=== PATIENT | male | born 1940 | race Caucasian/White ===

== ENCOUNTER 2017-11-03 19:12 | Emergency (ER) | payer OTHER ==
--- OUTSIDE RECORDS SUMMARY | 2017-11-03 19:14 | XMS REPORT | Clinical Summary ---
:1940 Author Organization [facility] Address [address] [place] [address] Care Team Providers Name Role Phone Husam Whittaker MD Primary Care Provider Allergies Active Allergy Reactions Severity Noted Date Comments Sulfa (Sulfonamide Antibiotics) 10/15/2015 Current Medications Prescription Sig. Disp. Refills Start End Date Status Date CYANOCOBALAMIN, VITAMIN Vitamin B-12 Active B-12, (VITAMIN B-12 2,500 mcg 1 ORAL) sublingual tablet multivitamin One-A-Day Active (THERAGRAN) tablet Essential 1 tablet omega-3 fatty omega-3 fatty Active acids-fish oil acids-fish oil 1 340-1,000 mg capsule 340 mg-1,000 mg capsule CINNAMON BARK-CHROMIUM 1 po QD Active PICOLIN ORAL aspirin (ECOTRIN) 81 MG Ecotrin Low Active enteric coated tablet Strength 81 mg 1 tablet,enteric coated valsartan-hydrochloroth TAKE 1 TABLET 90 tablet 2 Active iazide (DIOVAN-HCT) EVERY DAY 7 320-25 mg per tablet loratadine (CLARITIN) Take 10 mg by Active 10 mg tablet mouth daily. fluticasone (FLONASE) USE 2 SPRAYS 48 mL 1 Active 50 mcg/actuation nasal IN EACH 7 spray NOSTRIL DAILY ezetimibe (ZETIA) 10 mg TAKE 1 TABLET 90 tablet 2 Active tablet EVERY DAY 8 b complex vitamins Take 1 tablet Active tablet by mouth daily. magnesium 200 mg tablet Take by mouth. Active TURMERIC, BULK, MISC Active folic acid (FOLVITE) folic acid 400 10/29/19 Discontinued 400 MCG tablet mcg tablet 1 18 ZETIA 10 mg tablet TAKE 1 TABLET 90 tablet 2 11/30/19 Discontinued EVERY DAY 6 17 ezetimibe (ZETIA) 10 mg TAKE 1 TABLET 90 tablet 2 09/05/19 Discontinued tablet EVERY DAY 7 18 meclizine (ANTIVERT) 25 Take 1 tablet 30 tablet 1 04/24/20 mg tablet (25 mg total) 7 17 by mouth 3 (three) times a day as needed for dizziness for up to 30 days. amoxicillin-pot Take 1 tablet 20 tablet 0 04/09/20 clavulanate (AUGMENTIN) by mouth 2 7 17 875-125 mg per tablet (two) times a day for 10 days. fluticasone (FLONASE) 2 sprays (100 16 g 1 03/30/20 Discontinued 50 mcg/actuation nasal mcg total) by 7 17 spray Each Nare route daily for 30 days. methylPREDNISolone follow package 21 tablet 0 11/03/19 (MEDROL DOSEPAK) 4 mg directions 8 18 tablet Active Problems Problem Noted Date Essential hypertension 10/15/2015 HLD (hyperlipidemia) 10/15/2015 Spinal stenosis 10/15/2015 Weakness of distal arms and legs 10/15/2015 Sleep apnea 08/24/2012 Edema 05/03/2012 Aneurysm of thoracic aorta 11/03/2011 Malignant neoplasm of prostate 04/08/2011 Overview: Light Abdominal aortic aneurysm 04/04/2011 Atherosclerosis of coronary artery 04/03/2011 Resolved Problems Problem Noted Date Resolved Date Benign essential HTN 10/15/2015 12/04/2016 Encounters Date Type Specialty Care Team Description 10/28/2017 Office Visit Gerald Whittaker, Essential hypertension (Primary Dx ); Kayce Pulido, Pure hypercholesterolemia; Spinal stenosis of lumbar region with neurogenic claudication 09/05/2017 Refill Gerald Whittaker, Kayce Pulido MD 04/29/2017 Office Visit Gerald Whittaker, Routine general medical examination at a health care facility (Primary Dx); Kayce Pulido, Disease of prostate; Vertigo; Essential hypertension; Weakness of distal arms and legs; Malignant neoplasm of prostate; Sleep apnea, unspecified type; Abdominal aortic aneurysm without rupture; Pure hypercholesterolemia 04/29/2017 Telephone Internal [facility] 03/30/2017 Refill Internal Kayce Whittaker MD 03/30/2017 Orders Only Internal Kayce Whittaker MD 03/25/2017 Office Visit Gerald Whittaker, Vertigo (Primary Dx); Kayce Pulido, Abducens nerve palsy, 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 Procedure Pass Radiology 03/25/2017 Procedure Pass Radiology 03/25/2017 Procedure Pass Radiology 12/04/2016 Office Visit Gerald Whittaker, Abdominal aortic aneurysm (AAA) without rupture (Primary Dx); Kayce Pulido, Essential hypertension; Weakness of distal arms and legs; Malignant neoplasm of prostate; Pure hypercholesterolemia 11/29/2016 Refill Kayce Harrington MD after 11/02/2016 Immunizations Name Dates Previously Given Next Due FLUZONE HIGH-DOSE PF 03/25/2017, 04/28/2016, 04/25/2015, 04/25/2014 Influenza Split 05/03/2012 Influenza Trivalent 05/03/2008 Pneumococcal Conjugate 13-Valent 04/25/2015 Pneumococcal Polysaccharide 04/28/2016, 02/19/2009, 07/13/2008 Tdap 05/03/2013 Zoster 05/03/2011 Family History Medical History Relation Name Comments Dementia Father Hearing loss Father Heart attack Father Heart disease Mother Stroke Mother Relation Name Status Comments Father Mother Social History Tobacco Use Types Packs/Day Years Used Date Former Smoker Cigarettes 1 Smokeless Tobacco: Never Used Alcohol Use Drinks/Week oz/Week Comments No Sex Assigned at Date Recorded Not on file Last Filed Vital Signs Vital Sign Reading Time Taken Blood Pressure 136/86 10/28/2017 10:19 AM CDT Pulse 81 10/28/2017 10:19 AM CDT Temperature - - Respiratory Rate - - Oxygen Saturation - - Inhaled Oxygen Concentration - - Weight 98.4 kg (217 lb) 10/28/2017 10:11 AM CDT Height 180.3 cm (5' 11") 10/28/2017 10:11 AM CDT Body Mass Index 30.27 10/28/2017 10:11 AM CDT Plan of Treatment Date Type Specialty Care Team Description 04/30/2018 Office Visit Internal Medicine Husam Whittaker MD [address] [place], [place] [id number] Health Maintenance Due Date Last Done Comments INFLUENZA VACCINE 02/10/2018 03/25/2017, 04/28/2016, 04/28/2016, Additional history exists ZOSTER VACCINE Completed 05/03/2011 PNEUMOCOCCAL-13 Completed 04/25/2015, 07/13/2014 PNEUMOCOCCAL POLYSACCHARIDE VACCINE Completed 04/28/2016, 02/19/2009, AGE 65 AND OVER 07/13/2008 Results URINALYSIS, COMPLETE, WITH REFLEX TO CULTURE (04/29/2017 11:25 AM) Component Value Ref Range Color, UA YELLOW YELLOW Appearance CLEAR CLEAR Specific gravity, urine 1.010 1.001 - 1.035 pH, urine 7.0 5.0 - 8.0 Glucose, urine NEGATIVE NEGATIVE Bilirubin, UA NEGATIVE NEGATIVE Ketones, UA NEGATIVE NEGATIVE Occult blood, urine NEGATIVE NEGATIVE Protein, UA NEGATIVE NEGATIVE Nitrite, UA NEGATIVE NEGATIVE Leukocyte esterase, UA NEGATIVE NEGATIVE WBC, UA NONE SEEN < OR=5 /HPF RBC, UA NONE SEEN < OR=2 /HPF Squamous epithelial cells, UA NONE SEEN < OR=5 /HPF Bacteria, UA NONE SEEN NONE SEEN /HPF Hyaline casts, UA NONE SEEN NONE SEEN /LPF Reflex NO CULTURE INDICATED Specimen Performing Laboratory [facility] Narrative FASTING:YES DIFFICULT DRAW. PATIENT ADVISED TO RETURN FOR COLLECTION. PSA, POST-PROSTATECTOMY (04/29/2017 11:25 AM) Component Value Ref Range PSA, ICMA <0.02 ng/mL Comment: REFERENCE RANGES for PSA: LESS THAN 0.10 ng/mL AFTER RADICAL PROSTATECTOMY. 4.0 ng/mL OR LESS IN HEALTHY MALES WITHOUT PROSTATECTOMY. PSA values obtained with different assay methods or kits cannot be used interchangeably. This test was performed using the Nicole Cathy DxI method. PSA, ICMA is not to be used as a diagnostic procedure without confirmation of the diagnosis by another established product or procedure. The lower limit of accurate quantification for this assay is 0.02 ng/mL. PSA values less than 0.02 ng/mL cannot be accurately measured and will be reported as less than 0.02 ng/mL. Specimens with PSA levels below the lower limit of accurate quantification should be considered as negative. In patients with a negative result for post prostatectomy PSA, serial monitoring of PSA levels at regular intervals, along with physical examinations and other tests, may help to detect recurrent prostate cancer. Specimen Performing Laboratory [facility] Narrative FASTING:YES DIFFICULT DRAW. PATIENT ADVISED TO RETURN FOR COLLECTION. Thyroid stimulating hormone (04/29/2017 11:25 AM) Component Value Ref Range TSH 1.61 0.40 - 4.50 mIU/L Specimen Performing Laboratory [facility] Narrative FASTING:YES DIFFICULT DRAW. PATIENT ADVISED TO RETURN FOR COLLECTION. Hemoglobin A1c (04/29/2017 11:25 AM) Component Value Ref Range Hemoglobin A1C 5.5 <5.7 % of total Hgb Comment: For the purpose of screening for the presence of diabetes: <5.7% Consistent with the absence of diabetes 5.7-6.4%Consistent with increased risk for diabetes (prediabetes) > or=6.5%Consistent with diabetes This assay result is consistent with a decreased risk of diabetes. Currently, no consensus exists regarding use of hemoglobin A1c for diagnosis of diabetes in children. According to [place] Diabetes Association (ADA) guidelines, hemoglobin A1c <7.0% represents optimal control in non- diabetic patients. Different metrics may apply to specific patient populations. Standards of Medical Care in Diabetes(ADA). Specimen Performing Laboratory [facility] Narrative FASTING:YES DIFFICULT DRAW. PATIENT ADVISED TO RETURN FOR COLLECTION. Lipid panel (04/29/2017 11:25 AM) Component Value Ref Range Cholesterol, total 193 <200 mg/dL HDL cholesterol 59 >40 mg/dL Triglycerides 99 <150 mg/dL LDL cholesterol calculated 113 (H) mg/dL (calc) Comment: Reference range: <100 Desirable range <100 mg/dL for patients with CHD or diabetes and <70 mg/dL for diabetic patients with known heart disease. LDL-C is now calculated using the Chris-Andrew calculation, which is a validated novel method providing better accuracy than the Friedewald equation in the estimation of LDL-C. Chris SS et al. RANDY. 2013;310(19): 3902-2309 (http://education.Cardback/faq/KSN936) Cholesterol/HDL ratio 3.3 <5.0 (calc) Non-HDL cholesterol 134 (H) <130 mg/dL (calc) Comment: For patients with diabetes plus 1 major ASCVD risk factor, treating to a non-HDL-C goal of <100 mg/dL (LDL-C of <70 mg/dL) is considered a therapeutic option. Specimen Performing Laboratory [facility] Narrative FASTING:YES DIFFICULT DRAW. PATIENT ADVISED TO RETURN FOR COLLECTION. MRI Brain Wo Contrast (03/30/2017 11:15 AM) Specimen Performing Laboratory [facility] [address] [place] [address] Narrative EXAMINATION: MRI BRAIN WO CONTRAST CLINICAL HISTORY: R42 Dizziness and giddiness, H49.22 Sixth (abducent) nerve palsyleft eye, new onset L abducen's palsy COMPARISON:None TECHNIQUE: Multiplanar and multisequence MRI imaging of the brain was obtained without contrast. FINDINGS: There is no evidence of acute infarct, intracranial hemorrhage or mass, hydrocephalus or midline shift, stroke or thrombus in the vessels. There is nonspecific enlargement of the ventricles and extra axial space more prominent in the anterior region. There are mild nonspecific white matter changes. There is mucosal thickening and partial opacification of some of the sinuses. The orbits and mastoid air cells do not show abnormality. IMPRESSION: No radiographic findings to account for the patient's left 6th nerve palsy. If indicated high resolution images through the orbits with and without contrast can be performed for further evaluation. [id number] Procedure Note Interface, Radiology Results [facility] - 03/30/2017 2:40 PM CDT EXAMINATION: MRI BRAIN WO CONTRAST CLINICAL HISTORY: R42 Dizziness and giddiness, H49.22 Sixth (abducent) nerve palsy left eye, new onset L abducen's palsy COMPARISON: None TECHNIQUE: Multiplanar and multisequence MRI imaging of the brain was obtained without contrast. FINDINGS: There is no evidence of acute infarct, intracranial hemorrhage or mass, hydrocephalus or midline shift, stroke or thrombus in the vessels. There is nonspecific enlargement of the ventricles and extra axial space more prominent in the anterior region. There are mild nonspecific white matter changes. There is mucosal thickening and partial opacification of some of the sinuses. The orbits and mastoid air cells do not show abnormality. IMPRESSION: No radiographic findings to account for the patient's left 6th nerve palsy. If indicated high resolution images through the orbits with and without contrast can be performed for further evaluation. [id number] MRA Neck W Wo Contrast (03/30/2017 11:15 AM) Specimen Performing Laboratory [facility] [address] [place] [address] Narrative EXAMINATION: MRA NECK W WO CONTRAST CLINICAL HISTORY: R42 Dizziness and giddiness, H49.22 Sixth (abducent) nerve palsyleft eye, new onset L abducen's palsy COMPARISON:None TECHNIQUE: 2-D and 3-D [id number] MRA images of the cervical vessels were obtained with multiplanar and 3-D reconstructive algorithms. FINDINGS: The origins of the great vessels from the aortic arch are patent, and show no evidence of focal stenosis. The common carotid arteries show normal flow related signal, without evidence of focal stenosis. There is mild stenosis at the origin of the right internal carotid artery, estimated at 25%, according to NASCET criteria. There is flow related signal along the cervical course of both vertebral arteries, without evidence of high-grade stenosis. The vertebral arteries are similar in caliber. Each arises from its respective subclavian artery. IMPRESSION: Estimated 25% stenosis at the proximal right internal carotid artery, based on NASCET criteria. [id number] Procedure Note Interface, Radiology Results Incoming - 03/30/2017 1:15 PM CDT EXAMINATION: MRA NECK W WO CONTRAST CLINICAL HISTORY: R42 Dizziness and giddiness, H49.22 Sixth (abducent) nerve palsy left eye, new onset L abducen's palsy COMPARISON: None TECHNIQUE: 2-D and 3-D [id number] MRA images of the cervical vessels were obtained with multiplanar and 3-D reconstructive algorithms. FINDINGS: The origins of the great vessels from the aortic arch are patent, and show no evidence of focal stenosis. The common carotid arteries show normal flow related signal, without evidence of focal stenosis. There is mild stenosis at the origin of the right internal carotid artery, estimated at 25%, according to NASCET criteria. There is flow related signal along the cervical course of both vertebral arteries, without evidence of high-grade stenosis. The vertebral arteries are similar in caliber. Each arises from its respective subclavian artery. IMPRESSION: Estimated 25% stenosis at the proximal right internal carotid artery, based on NASCET criteria. [id number] MRA Head Wo Contrast (03/30/2017 11:15 AM) Specimen Performing Laboratory [facility] [address] [place] [address] Narrative EXAMINATION: MRA HEAD WO CONTRAST CLINICAL HISTORY: R42 Dizziness and giddiness, H49.22 Sixth (abducent) nerve palsyleft eye, new onset L abducen's palsy. Evaluate for intracranial artery abnormality. COMPARISON:None TECHNIQUE: [id number] MRA images of the [place] vessels were obtained with multiplanar and 3-D reconstructive algorithms. FINDINGS: There is flow in the anterior and both posterior communicating arteries. There is no significant focal stenosis in the major arteries forming the [place]. I do not see evidence of focal aneurysm or arterial venous malformation. IMPRESSION: Unremarkable MRA of the [place] with no significant abnormality. [id number] Procedure Note [facility], Radiology Results - 03/30/2017 1:29 PM CDT EXAMINATION: MRA HEAD WO CONTRAST CLINICAL HISTORY: R42 Dizziness and giddiness, H49.22 Sixth (abducent) nerve palsy left eye, new onset L abducen's palsy. Evaluate for intracranial artery abnormality. COMPARISON: None TECHNIQUE: [id number] MRA images of the [place] vessels were obtained with multiplanar and 3-D reconstructive algorithms. FINDINGS: There is flow in the anterior and both posterior communicating arteries. There is no significant focal stenosis in the major arteries forming the [place]. I do not see evidence of focal aneurysm or arterial venous malformation. IMPRESSION: Unremarkable MRA of the [place] with no significant abnormality. [id number] Sedimentation rate (03/25/2017 11:09 AM) Component Value Ref Range Sedimentation rate 2 < OR=20 mm/h Specimen Performing Laboratory [facility] Narrative FASTING:NO CBC with platelet and differential (03/25/2017 11:09 AM) Component Value Ref Range WBC 7.0 3.8 - 10.8 Thousand/uL RBC 4.58 4.20 - 5.80 Million/uL HGB 14.8 13.2 - 17.1 g/dL HCT 43.2 38.5 - 50.0 % MCV 94.3 80.0 - 100.0 fL MCH 32.3 27.0 - 33.0 pg MCHC 34.3 32.0 - 36.0 g/dL RDW 12.1 11.0 - 15.0 % Platelet count 221 140 - 400 Thousand/uL MPV 10.9 7.5 - 12.5 fL Neutrophils, absolute 4,627 1,500 - 7,800 cells/uL Lymphocytes, absolute 1,785 850 - 3,900 cells/uL Monocytes, absolute 420 200 - 950 cells/uL Eosinophils, absolute 126 15 - 500 cells/uL Basophils, absolute 42 0 - 200 cells/uL Neutrophils 66.1 % Lymphocytes 25.5 % Monocytes 6.0 % Eosinophils 1.8 % Basophils + RC 0.6 % Specimen Performing Laboratory [facility] Narrative FASTING:NO Comprehensive metabolic panel (03/25/2017 11:09 AM) Component Value Ref Range Glucose 90 65 - 99 mg/dL Comment: Fasting reference interval BUN, whole blood 15 7 - 25 mg/dL Creatinine 1.04 0.70 - 1.18 mg/dL Comment: For patients >49 years of age, the reference limit for Creatinine is approximately 13% higher for people identified as -[place] Citizen. EGFR Non-Afr. [place] Citizen 70 > OR=60 mL/min/1.73m2 EGFR 81 > OR=60 mL/min/1.73m2 BUN/creatinine ratio NOT APPLICABLE 6 - 22 (calc) Sodium 138 135 - 146 mmol/L Potassium 4.1 3.5 - 5.3 mmol/L Chloride 102 98 - 110 mmol/L CO2 30 20 - 31 mmol/L Calcium 9.5 8.6 - 10.3 mg/dL Protein 6.6 6.1 - 8.1 g/dL Albumin, S 4.0 3.6 - 5.1 g/dL Globulin, total 2.6 1.9 - 3.7 g/dL (calc) Albumin/globulin ratio 1.5 1.0 - 2.5 (calc) Total bilirubin 0.7 0.2 - 1.2 mg/dL Alkaline phosphatase 65 40 - 115 U/L AST 18 10 - 35 U/L ALT 16 9 - 46 U/L Specimen Performing Laboratory [facility] Narrative FASTING:NO after 11/02/2016 Insurance Payer Benefit Plan / Group Subscriber ID Type Phone Address MEDICARE MEDICARE PART A AND B xxxxxxxxxx Medicare [place], [place] COMMERCIAL MISC MISC COMMERCIAL xxxxxxxxx Commercial +[id number] [place] [id number]
[2017-11-03] MEDS ORDERED: NA CHLORIDE 0.9% 500 ML ONE (19:45)
[2017-11-03] MEDS ORDERED: ONDANSETRON 4 MG/2 ML VIAL ONE (19:45)
[2017-11-03 19:49] LABS: Absolute Lymphocytes (CBC) 1.5 K/uL (0.7-4.9); Absolute Monocytes 0.5 K/uL (0.1-1.3); Absolute Neutrophil 10.8 K/uL (1.8-8.0); Basophils % 0.1 % (0-1.3); Eosinophils % 0.9 % (0-4.4); Hematocrit 42.1 % (39.6-49.0); Lymphocytes % 11.4 % (15.3-44.8); MCH 32.6 pg (27.0-35.0); MCV 94.1 fL (80-100); MPV 8.8 fL (7.6-11.3); Monocytes % 4.1 % (3.3-12.3); RBC Red Blood Cell Count 4.47 M/uL (4.33-5.43)
[2017-11-03 20:04] LABS: Protime INR 0.93
--- NOTE | 2017-11-03 20:28 | RAD REPORT ---
EXAM DESCRIPTION: US - Abdomen Exam Limited - 11/03/2017 8:20 pm CLINICAL HISTORY: Abdominal pain. COMPARISON: None. FINDINGS: The gallbladder demonstrates cholelithiasis. No pericholecystic fluid or gallbladder wall thickening. The common bile duct is normal measuring 4 mm. The liver demonstrates no findings of intrahepatic biliary dilatation. Visualize aspects of the aorta are within normal limits. IMPRESSION: Cholelithiasis.
--- NOTE | 2017-11-03 20:32 | RAD REPORT ---
EXAM DESCRIPTION: RAD - Chest Single View - 11/03/2017 8:24 pm CLINICAL HISTORY: Chest pain. COMPARISON: None. FINDINGS: Portable technique limits examination quality. The lungs are mildly emphysematous but grossly clear. The heart is normal in size. No displaced fract ures. IMPRESSION: Mild COPD.
[2017-11-03 20:33] LABS: CKMB Creatine Kinase MB 3.4 ng/ml (0.3-4.0); Potassium 3.7 mEq/L (3.6-5.0)
[2017-11-03 20:40] LABS: Albumin 4.1 g/dL (3.2-5.5); Bilirubin Direct 0.1 mg/dL (0-0.2); Bilirubin Total 0.3 mg/dL (0.3-1.2); Magnesium 1.9 mg/dL (1.8-2.5); Protein, Total 7.1 g/dL (6.0-8.3)
[2017-11-03] MEDS ORDERED: PROMETHAZINE 25 MG/ML VIAL ONE (20:48)
[2017-11-03] MEDS ORDERED: CEFTRIAXONE/SWI 1gm 1 GM/10 ML SYR ONE (21:18)
[2017-11-03] MEDS ORDERED: MORPHINE 10 MG/ML VIAL ONE (21:18)
--- NOTE | 2017-11-03 21:26 | ER ---
Nurse's Notes [facility] Name: Elkin Mancilla Age: 77 yrs Sex: Male : 1940 Arrival Date: 11/03/2017 Time: 19:17 Bed 17 Private MD: Diagnosis: Chest pain. Cholelithiasis Presentation: 11/03 19:17 Presenting complaint: Patient states: Sternal chest pain that moves to RUQ. Patient aj reports pain began at 1500 today. Patient reports nausea as well. Transition of care: patient was not received from another setting of care. Onset of symptoms was November 03, 2017. Initial Sepsis Screen: Does the patient meet any 2 criteria? No. Patient's initial sepsis screen is negative. Does the patient have a suspected source of infection? No. Patient's initial sepsis screen is negative. Care prior to arrival: None. 19:17 Method Of Arrival: Wheelchair aj 19:17 Acuity: GIFTY 2 aj Triage Assessment: 19:19 General: Appears in no apparent distress. uncomfortable, Behavior is calm, cooperative, aj appropriate for age. Pain: Complains of pain in chest Pain currently is 6 out of 10 on a pain scale. Neuro: Level of Consciousness is awake, alert, obeys commands, Oriented to person, place, time, situation. Cardiovascular: Reports chest pain, nausea, Capillary refill < 3 seconds in bilateral fingers Patient's skin is warm and dry. Respiratory: Airway is patent Respiratory effort is even, unlabored, Respiratory pattern is regular, symmetrical. Derm: Skin is intact, is healthy with good turgor, Skin is pink, warm \T\ dry. normal. Historical: - Allergies: 19:19 Sulfa (Sulfonamide Antibiotics); aj - Home Meds: 19:19 Diovan HCT 160-12.5 mg Oral tab 1 tab once daily [Active]; Zetia 10 mg Oral tab 1 tab aj once daily [Active]; - PMHx: 19:19 Hyperlipidemia; Hypertension; AAA; aj - PSHx: 19:19 Prostatectomy; aj - Immunization history:: Adult Immunizations up to date. - Social history:: Smoking status: Patient/guardian denies using tobacco. Screenin:30 Abuse screen: Denies threats or abuse. Denies injuries from another. Nutritional ak1 screening: No deficits noted. Tuberculosis screening: No symptoms or risk factors identified. Fall Risk None identified. Assessment: 19:30 Reassessment: Patient appears in no apparent distress at this time. General: Appears in ak1 no apparent distress. Behavior is calm, cooperative. Pain: Complains of pain in chest Pain radiates to under right breast Pain began 4 hours ago. Neuro: No deficits noted. Cardiovascular: Reports chest pain, nausea. Respiratory: No deficits noted. GI: No signs and/or symptoms were reported involving the gastrointestinal system. : No signs and/or symptoms were reported regarding the genitourinary system. EENT: No signs and/or symptoms were reported regarding the EENT system. Derm: No signs and/or symptoms reported regarding the dermatologic system. 20:39 Reassessment: pt c/o increased nausea. ak1 Vital Signs: 19:19 BP 146 / 78; Pulse 59; Resp 19; Temp 97.8; Pulse Ox 98% on R/A; Weight 99.79 kg; Height aj 5 ft. 11 in. (180.34 cm); Pain 6/10; 21:34 BP 151 / 75; Pulse 56; Resp 18; Pulse Ox 95% on R/A; mt 19:19 Body Mass Index 30.68 (99.79 kg, 180.34 cm) aj ED Course: 19:17 Patient arrived in ED. aj 19:18 Triage completed. aj 19:19 Arm band placed on left wrist. Patient placed in an exam room. aj 19:24 Aleksandar Lund MD is Attending Physician. pkl 19:29 Arleen Pierosn, RN is Primary Nurse. ak1 19:30 Patient has correct armband on for positive identification. Placed in gown. Bed in low ak1 position. Call light in reach. Side rails up X 1. Adult w/ patient. die presser on. Pulse ox on. NIBP on. 19:30 Inserted saline lock: 20 gauge in right antecubital area, using aseptic technique. ak1 Blood collected. Patient maintains SpO2 saturation greater than 95% on room air. 20:20 Abdomen Exam Limited In Process Unspecified. EDMS 20:20 Ultrasound completed. Patient tolerated well. cy 20:25 XRAY Chest (1 view) In Process Unspecified. EDMS 21:33 No provider procedures requiring assistance completed. ak1 21:46 IV discontinued, intact, bleeding controlled, No redness/swelling at site. Pressure ak1 dressing applied. Administered Medications: Discontinued: NS 0.9% 1000 ml IV at 100 ml/hr once 19:49 Drug: NS 0.9% 1000 ml Route: IV; Rate: 100 ml/hr; Site: right antecubital; ak1 11/04 00:15 Follow up: IV Status: Order to discontinue infusion ak1 11/03 19:49 Drug: Zofran 4 mg Route: IVP; Site: right antecubital; ak1 21:45 Follow up: Response: No adverse reaction ak1 11/04 00:15 Follow up: Response: No adverse reaction ak1 11/03 20:53 Drug: Phenergan 12.5 mg Route: IVP; Site: right antecubital; ak1 21:45 Follow up: Response: No adverse reaction ak1 11/04 00:15 Follow up: Response: No adverse reaction ak1 11/03 21:26 Drug: Rocephin - (cefTRIAXone) 1 grams Route: IVPB; Infused Over: 30 mins; Site: right ak1 antecubital; 21:45 Follow up: IV Status: Completed infusion ak1 11/04 00:15 Follow up: IV Status: Completed infusion ak1 11/03 21:26 Drug: morphine 2 mg Route: IVP; Site: right antecubital; ak1 21:45 Follow up: Response: No adverse reaction ak1 11/04 00:16 Follow up: Response: No adverse reaction ak1 Outcome: 11/03 21:26 Discharge ordered by . melva 21:46 Discharged to home via wheelchair, with family. ak1 21:46 Condition: stable 21:46 Discharge instructions given to patient, family, Instructed on discharge instructions, follow up and referral plans. no drinking with medication, no driving heavy equipment, medication usage, Demonstrated understanding of instructions, follow-up care, medications, Prescriptions given X 3. 21:46 Patient left the ED. ak1 Signatures: Dispatcher [employer] Sara Gaitan RN RN aj Lam, Pin, MD MD pkl Krenek, Amber, RN RN ak1 Thompson, Moriah mt Yong, Chheannith cy
--- NOTE | 2017-11-03 21:27 | EDPHYS ---
Physician Documentation [facility] Name: Elkin Mancilla Age: 77 yrs Sex: Male : 1940 Arrival Date: 11/03/2017 Time: 19:17 Bed 17 Private MD: ED Physician Aleksandar Lund HPI: 11/03 19:37 This 77 yrs old Male presents to ER via Wheelchair with complaints of Chest pkl Pain > 30 y/o. 19:37 The patient or guardian reports chest pain that is located primarily in the substernal pkl area, right lower chest. Onset: just prior to arrival, 4 hour(s) ago. The pain does not radiate. Associated signs and symptoms: Pertinent positives: nausea. The chest pain is described as dull. The patient has not experienced similar symptoms in the past. Historical: - Allergies: 19:19 Sulfa (Sulfonamide Antibiotics); aj - Home Meds: 19:19 Diovan HCT 160-12.5 mg Oral tab 1 tab once daily [Active]; Zetia 10 mg Oral tab 1 tab aj once daily [Active]; - PMHx: 19:19 Hyperlipidemia; Hypertension; AAA; aj - PSHx: 19:19 Prostatectomy; aj - Immunization history:: Adult Immunizations up to date. - Social history:: Smoking status: Patient/guardian denies using tobacco. ROS: 19:37 Eyes: Negative for injury, pain, redness, and discharge, ENT: Negative for injury, pkl pain, and discharge, Neck: Negative for injury, pain, and swelling. 19:37 Cardiovascular: Positive for chest pain. 19:37 Respiratory: Positive for cough, with clear sputum, Negative for shortness of breath. 19:37 Abdomen/GI: Positive for abdominal pain, of the right upper quadrant. 19:37 Back: Negative for pain at rest. 19:37 : Negative for urinary symptoms. 19:37 MS/extremity: Negative for acute changes. 19:37 Skin: Negative for rash. 19:37 Neuro: Negative for altered mental status. Exam: 19:37 Head/Face: Normocephalic, atraumatic. Eyes: Pupils equal round and reactive to light, pkl extra-ocular motions intact. Lids and lashes normal. Conjunctiva and sclera are non-icteric and not injected. Cornea within normal limits. Periorbital areas with no swelling, redness, or edema. ENT: Nares patent. No nasal discharge, no septal abnormalities noted. Tympanic membranes are normal and external auditory canals are clear. Oropharynx with no redness, swelling, or masses, exudates, or evidence of obstruction, uvula midline. Mucous membranes moist. Neck: Trachea midline, no thyromegaly or masses palpated, and no cervical lymphadenopathy. Supple, full range of motion without nuchal rigidity, or vertebral point tenderness. No Meningismus. Chest/axilla: Normal chest wall appearance and motion. Nontender with no deformity. No lesions are appreciated. Cardiovascular: Regular rate and rhythm with a normal S1 and S2. No gallops, murmurs, or rubs. Normal PMI, no JVD. No pulse deficits. Respiratory: Lungs have equal breath sounds bilaterally, clear to auscultation and percussion. No rales, rhonchi or wheezes noted. No increased work of breathing, no retractions or nasal flaring. Abdomen/GI: Soft, non-tender, with normal bowel sounds. No distension or tympany. No guarding or rebound. No evidence of tenderness throughout. Back: No spinal tenderness. No costovertebral tenderness. Full range of motion. Skin: Warm, dry with normal turgor. Normal color with no rashes, no lesions, and no evidence of cellulitis. MS/ Extremity: Pulses equal, no cyanosis. Neurovascular intact. Full, normal range of motion. Neuro: Awake and alert, GCS 15, oriented to person, place, time, and situation. Cranial nerves II-XII grossly intact. Motor strength 5/5 in all extremities. Sensory grossly intact. Cerebellar exam normal. Normal gait. Vital Signs: 19:19 BP 146 / 78; Pulse 59; Resp 19; Temp 97.8; Pulse Ox 98% on R/A; Weight 99.79 kg; Height aj 5 ft. 11 in. (180.34 cm); Pain 6/10; 21:34 BP 151 / 75; Pulse 56; Resp 18; Pulse Ox 95% on R/A; mt 19:19 Body Mass Index 30.68 (99.79 kg, 180.34 cm) aj MDM: 19:24 Patient medically screened. pk 21:25 Data reviewed: vital signs, nurses notes. [facility] 11/03 19:35 Order name: Basic Metabolic Panel; Complete Time: 21:04 pkl 11/03 19:35 Order name: BNP; Complete Time: 21:04 pkl 11/03 19:35 Order name: CBC with Diff; Complete Time: 21: pkl 11/03 19:35 Order name: Ckmb; Complete Time: 21: pkl 11/03 19:35 Order name: CPK; Complete Time: 21: pkl 11/03 19:35 Order name: LFT's; Complete Time: 21: pkl 11/03 19:35 Order name: Magnesium; Complete Time: 21: pkl 11/03 19:35 Order name: PT-INR; Complete Time: 21: pkl 11/03 19:35 Order name: Ptt, Activated; Complete Time: 21: pkl 11/03 19:35 Order name: Troponin (emerg Dept Use Only); Complete Time: 21: pkl 11/03 19:35 Order name: XRAY Chest (1 view); Complete Time: 21: pkl 11/03 19:35 Order name: Amylase, Serum; Complete Time: 21: pkl 11/03 19:35 Order name: Lipase; Complete Time: 21: pkl 11/03 19:35 Order name: EKG; Complete Time: 19:35 pkl 11/03 19:35 Order name: Cardiac monitoring; Complete Time: 19:37 pkl 11/03 19:35 Order name: EKG - Nurse/Tech; Complete Time: 19:37 pkl 11/03 19:35 Order name: IV Saline Lock; Complete Time: 19:37 pkl 11/03 19:35 Order name: Labs collected and sent; Complete Time: 19:37 pkl 11/03 19:35 Order name: O2 Per Protocol; Complete Time: 19:37 pkl 11/03 19:35 Order name: O2 Sat Monitoring; Complete Time: 19:37 pkl 11/03 19:40 Order name: Abdomen Exam Limited; Complete Time: 21:04 EDMS Administered Medications: Discontinued: NS 0.9% 1000 ml IV at 100 ml/hr once 19:49 Drug: NS 0.9% 1000 ml Route: IV; Rate: 100 ml/hr; Site: right antecubital; ak1 11/04 00:15 Follow up: IV Status: Order to discontinue infusion ak1 11/03 19:49 Drug: Zofran 4 mg Route: IVP; Site: right antecubital; ak1 21:45 Follow up: Response: No adverse reaction ak1 11/04 00:15 Follow up: Response: No adverse reaction ak1 11/03 20:53 Drug: Phenergan 12.5 mg Route: IVP; Site: right antecubital; ak1 21:45 Follow up: Response: No adverse reaction ak1 11/04 00:15 Follow up: Response: No adverse reaction ak1 11/03 21:26 Drug: Rocephin - (cefTRIAXone) 1 grams Route: IVPB; Infused Over: 30 mins; Site: right ak1 antecubital; 21:45 Follow up: IV Status: Completed infusion ak1 11/04 00:15 Follow up: IV Status: Completed infusion ak1 11/03 21:26 Drug: morphine 2 mg Route: IVP; Site: right antecubital; ak1 21:45 Follow up: Response: No adverse reaction ak1 11/04 00:16 Follow up: Response: No adverse reaction ak1 Disposition: 11/03/17 21:26 Discharged to Home. Impression: Chest pain. Cholelithiasis. - Condition is Stable. - Prescriptions for Augmentin 875- 125 mg Oral Tablet - take 1 tablet by ORAL route every 12 hours for 10 days; 20 tablet. Ultram 50 mg Oral Tablet - take 1 tablet by ORAL route every 8 hours As needed; 20 tablet. Zofran 4 mg Oral Tablet - take 1 tablet by ORAL route every 12 hours As needed; 10 tablet. - Medication Reconciliation Form, Thank You Letter, Antibiotic Education, Prescription Opioid Use form. - Follow up: Private Physician; When: 1 - 2 days; Reason: Re-evaluation by your physician. - Problem is new. - Symptoms have improved. Signatures: Dispatcher [employer] Sara Gaitan RN RN aj Lam, Pin, MD MD pkl Krenek, Amber, RN RN ak1 Corrections: (The following items were deleted from the chart) 11/03 19:40 19:36 Abdomen Complete+[id number] ordered. EDMS EDMS
--- NOTE | 2017-11-04 06:54 | EKG ---
Test Date: 2017-11-03 Test Time: 19:25:37 Environmental Health Safety Engineer: ERIS MEASUREMENT RESULTS: Intervals: Rate: 57 [place]: 186 QRSD: 88 QT: 414 QTc: 402 [place]: P: 63 [place]: 186 QRS: 47 T: 55 INTERPRETIVE STATEMENTS: Sinus bradycardia Otherwise normal ECG Compared to ECG 12/13/1997 11:24:00 No significant changes Electronically Signed On 11-04-17 06:54:15 CDT by Raj Yen
== END 2017-11-03 21:46 | disposition home or self-care (01) ==
LOC: ER 19:12
DX: K80.20 Calculus of gallbladder without cholecystitis without obstruction (principal); I10 Essential (primary) hypertension; E78.5 Hyperlipidemia, unspecified; Z88.2 Allergy status to sulfonamides
CPT/HCPCS: 36415; 71045; 76705; 80048; 80076; 82150; 82550; 82553; 83690; 83735; 83880; 84484; 85025; 85610; 85730; 93005; 96361; 96365; 96375; 99285; J0696; J2405; J2550